=== PATIENT | male | born 2000 | race Caucasian/White ===

== ENCOUNTER 2021-10-20 08:30 | Outpatient (CLI) | payer OTHER, SELFPAY ==
--- NOTE | 2021-10-20 08:43 | USCV_ITS ---
Kermit Barrientos Age: 21 Gender: M : 2000 Exam Date: 10/20/2021 08:55 Ordering Phys: Justo Johnson Technologist: Exam Location: [facility] Indication: ? enlarge heart BP: 128 / 72 HR: 81 Rhythm: Sinus Technical Quality: Good MEASUREMENTS (Male / Female) Normal Values 2D ECHO LV Diastolic Diameter PLAX 4.7 cm 4.2 - 5.9 / 3.9 - 5.3 cm LV Systolic Diameter PLAX 2.7 cm IVS Diastolic Thickness 1.0 cm 0.6 - 1.0 / 0.6 - 0.9 cm IVS Systolic Thickness 1.3 cm LVPW Diastolic Thickness 1.0 cm 0.6 - 1.0 / 0.6 - 0.9 cm LVPW Systolic Thickness 1.8 cm LVOT Diameter 2.1 cm LV Ejection Fraction 2D Teich 73.9 % LV Ejection Fraction MOD 2C 64.8 % LV Ejection Fraction 2C AL 62.8 % LA Diameter 3.7 cm Aorta at Sinotubular Diameter 3.1 cm M-MODE Aortic Annulus Diameter 3.7 cm LA Ao Ratio MM 1.1 MV E Point Septal Separation 0.8 cm DOPPLER AV Peak Velocity 131.0 cm/s LVOT Peak Velocity 129.0 cm/s AV Area Cont Eq vti 3.7 cm squared AV Area Cont Eq pk 3.3 cm squared MV Area PHT 5.0 cm squared Mitral E to A Ratio 1.0 MV E' Velocity 45.0 cm/s Mitral E to MV E' Ratio 6.0 Mitral E to LV E' Lateral Ratio 5.2 Mitral E to LV E' Septal Ratio 7.3 TR Peak Velocity 149.7 cm/s TR Peak Gradient 9.0 mmHg TV Peak E Velocity 116.0 cm/s Right Atrial Pressure 3.0 mmHg Pulmonary Artery Systolic Pressu 12.0 mmHg PV Peak Velocity 126.0 cm/s FINDINGS Left Ventricle Normal left ventricular size, systolic function and wall thickness, with no regional wall motion abnormalities. Normal left ventricular wall thickness. Normal diastolic filling pattern. Left ventricular ejection fraction is estimated at 65 %. Right Ventricle The right ventricle is normal in size and function. Normal right ventricular systolic pressure. Right Atrium The right atrium is normal in size. Left Atrium The left atrium is normal in size. Mitral Valve Structurally normal mitral valve without significant stenosis or prolapse. There is no mitral regurgitation. Aortic Valve Structurally normal aortic valve without significant sclerosis or stenosis. There is no aortic regurgitation. Tricuspid Valve Structurally normal tricuspid valve without significant stenosis or regurgitation. Pulmonary artery systolic pressure is normal. Pulmonic Valve Structurally normal pulmonic valve without significant stenosis. There is no pulmonic regurgitation. Pericardium Normal pericardium without effusion. Aorta Normal ascending aorta dimension. CONCLUSIONS Normal transthoracic echocardiogram. There are no prior echocardiogram studies to compare. Dr. Maxwell Stevens MD (Electronically Signed) Final Date: 20 Oct 2021 16:54 S
== END 2021-10-20 08:31 | disposition home or self-care (01) ==
LOC: RAD 08:32
PROVIDERS: Visit Provider Registered Nurse
DX: R07.9 Chest pain, unspecified (principal)
CPT/HCPCS: 93306